=== PATIENT | female | born 1945 | race Caucasian/White ===

== ENCOUNTER 2019-07-23 14:59 | Inpatient (IN) | payer OTHER ==
[~2019-07-23] VITALS: Ht 152.4 cm; Wt 5.0 kg
--- NOTE | 2019-07-23 15:32 | NUR ---
PTE ALERTA Y ORIENTADA X3, PTE REFIERE REFERIDO DE PARA INTERVENCION QUIRURGICA.PTE REFIERE MOLESTIA ABDOMINAL.
[2019-07-24] MEDS ORDERED: ABATINEX680 MG PO (08:25)
[2019-07-27] MEDS ORDERED: OMEPRAZOLE MAGN20 MG PO (11:04)
[2019-07-27] MEDS ORDERED: PERCOCET 5-3251 EACH PO (11:04)
== END 2019-07-27 13:21 | disposition home or self-care (01) | DRG 330 ==
LOC: ER 14:59 → SEC-K 16:42 → SURG 16:42
PROVIDERS: ADMIT Surgery
PROC: 0DTN4ZZ Resection of Sigmoid Colon, Percutaneous Endoscopic Approach (ICD-10-PCS; principal; 2019-07-23)
PROC: 07TB4ZZ Resection of Mesenteric Lymphatic, Percutaneous Endoscopic Approach (ICD-10-PCS; 2019-07-23)
PROC: 0FB04ZZ Excision of Liver, Percutaneous Endoscopic Approach (ICD-10-PCS; 2019-07-23)
PROC: 0DJD8ZZ Inspection of Lower Intestinal Tract, Via Natural or Artificial Opening Endoscopic (ICD-10-PCS; 2019-07-23)
DX: C19 Malignant neoplasm of rectosigmoid junction (principal); C78.7 Secondary malignant neoplasm of liver and intrahepatic bile duct; K62.5 Hemorrhage of anus and rectum; K56.690 Other partial intestinal obstruction; D64.89 Other specified anemias

== ENCOUNTER 2019-08-18 09:13 | Day surgery (SDC) | payer OTHER ==
[~2019-08-18 09:13] MED LIST: ABATINEX680 MG PO; OMEPRAZOLE MAGN20 MG PO; PERCOCET 5-3251 EACH PO
[2019-08-18] MEDS ORDERED: PERCOCET 5-3251 EACH PO (10:12)
== END 2019-08-18 12:45 | disposition home or self-care (01) ==
LOC: CIR.AMB 09:13
DX: C19 Malignant neoplasm of rectosigmoid junction (principal)
CPT/HCPCS: 36561; C1751